=== PATIENT | male | born 1975 | race African-American/Black ===

== ENCOUNTER 2020-06-18 02:39 | Emergency (ER) | payer MEDICAID ==
[~2020-06-18] VITALS: Ht 188 cm; Wt 95.0 kg
[2020-06-18] MEDS ORDERED: SUCCINYLCHOLINE CHLORIDE 200MG/10ML IV ONE (04:00)
[2020-06-18] MEDS ORDERED: EPINEPHRINE 10 MG in SODIUM CHLORIDE 0.9% 250 ML IV PRN (04:00)
[2020-06-18] MEDS ORDERED: SODIUM CHLORIDE 0.9% 10ML VIAL ONE (04:00)
[2020-06-18] MEDS ORDERED: SODIUM CHLORIDE 0.9% 1,000 ML IV ONE (04:00)
[2020-06-18] MEDS ORDERED: NOREPINEPHRINE 8 MG in DEXTROSE 5% WATER 250 ML IV PRN (04:00)
[2020-06-18] MEDS ORDERED: VECURONIUM BROMIDE 10 MG/VIAL IV ONE (04:00)
[2020-06-18] MEDS ORDERED: ETOMIDATE 2MG/ML 10ML VIAL IV ONE (04:00)
[2020-06-18 04:21] LABS: CHLORIDE 107 mEq/L (98-107)
[2020-06-18 04:24] VITALS: BP 159/102
[2020-06-18 04:25] LABS: BASOPHILS % 0.6 % (0.0-2.0); EOSINOPHILS % 0.2 % (0.0-5.0); HEMATOCRIT. 36.1 % (42.0-52.0); HEMOGLOBIN. 11.4 g/dL (14.0-18.0); LYMPHOCYTES % 33.9 % (20.0-50.0); MEAN CORPUSCULAR VOLUME 85.1 fL (80.0-94.0); MEAN PLATELET VOLUME 9.5 fl (7.4-10.4); NEUTROPHILS % 60.3 % (40.0-76.0); PLATELET 79 x1000/uL (130-400); RED BLOOD CELL COUNT 4.24 mill/uL (4.7-6.1); RED CELL DISTRIBUTION WIDTH 15.4 % (11.6-14.6)
[2020-06-18 04:26] LABS: ETHANOL BLOOD < 10 mg/dL
[2020-06-18 04:30] LABS: PROTHROMBIN TIME 20.6 sec (9.6-11.0)
== END 2020-06-18 07:21 | disposition expired ==
LOC: ER 02:39
DX: R41.82 Altered mental status, unspecified (principal); R00.1 Bradycardia, unspecified; R20.8 Other disturbances of skin sensation; I50.9 Heart failure, unspecified
CPT/HCPCS: 31500; 36415; 36556; 71045; 80053; 80307; 80320; 80329; 82140; 83605; 83880; 84484; 85025; 85610; 86850; 86900; 86901; 92950; 96365; 96375; 99291; J0330; J3490; J7030; G0480